=== PATIENT | male | born 1965 | race Caucasian/White ===

== ENCOUNTER 2021-01-17 14:51 | Emergency (ER) | payer BC, SELFPAY ==
[~2021-01-17 14:51] MED LIST: HYDR-3964 PO; LISI10TA27 PO; MULT-1085 PO
[2021-01-17] MEDS ORDERED: normal saline 1000ML IV soln IV ONE (15:00)
[2021-01-17 15:12] LABS: BASOPHILS % (AUTO) 0.7 % (0-1); EOSINOPHILS # (AUTO) 0.2 X10'3 (0-0.9); EOSINOPHILS % (AUTO) 3.6 % (0-6); HEMATOCRIT 45.6 % (42.0-52.0); HEMOGLOBIN 15.7 g/dl (14.0-17.9); LYMPHOCYTES % (AUTO) 43.3 % (21-51); MEAN CORPUSCULAR HEMOGLOBIN 33.7 PG (27.0-31.0); MEAN CORPUSCULAR HGB CONC 34.5 g/dL (33.0-36.5); MEAN CORPUSCULAR VOLUME 97.7 FL (78-98); MEAN PLATELET VOLUME 7.5 FL (7.4-10.4); MONOCYTES # (AUTO) 0.3 X10'3 (0-0.9); MONOCYTES % (AUTO) 5.5 % (2-12); NEUTROPHILS # (AUTO) 2.2 X10'3 (1.8-7.7); NEUTROPHILS % (AUTO) 46.9 % (42-75); PLATELET COUNT 144 X10'3 (140-440); RED BLOOD COUNT 4.67 X10'6 (4.70-6.10); RED CELL DISTRIBUTION WIDTH 13.1 % (11.5-14.5); WHITE BLOOD COUNT 4.6 X10'3 (4.5-11.0)
[2021-01-17 15:29] LABS: ALANINE AMINOTRANSFERASE 34 U/L (12-78); ALBUMIN 3.5 G/DL (3.4-5.0); ALKALINE PHOSPHATASE 95 IU/L (46-116); ANION GAP 16 (8-16); ASPARTATE AMINO TRANSFERASE 40 U/L (10-37); BILIRUBIN,TOTAL 0.3 MG/DL (0.1-1.0); BLOOD UREA NITROGEN 11 MG/DL (7-18); CALCIUM 8.2 MG/DL (8.5-10.1); CHLORIDE 107 MMOL/L (99-107); CREATININE 0.92 MG/DL (0.60-1.10); GLUCOSE 156 MG/DL (70-104); POTASSIUM 3.6 MMOL/L (3.5-5.1); SODIUM 146 MMOL/L (135-145); TOTAL CARBON DIOXIDE 23.3 MMOL/L (24-32); eGFR 86 ML/MIN
[2021-01-17 15:41] LABS: ETHANOL 0.387 GM/DL (0.0-0.010)
[2021-01-18] MEDS ORDERED: CHLO25CA10 PO (05:05)
== END 2021-01-17 16:00 | disposition left against medical advice (07) ==
LOC: ER 14:52
DX: R45.851 Suicidal ideations (principal); F10.929 Alcohol use, unspecified with intoxication, unspecified; I10 Essential (primary) hypertension; W19.XXXA Unspecified fall, initial encounter; Y93.89 Activity, other specified; Y92.89 Other specified places as the place of occurrence of the external cause; Y99.8 Other external cause status
CPT/HCPCS: 36415; 80053; 80320; 84443; 85025; 99285

== ENCOUNTER 2021-01-18 02:51 | Emergency (ER) | payer BC ==
[~2021-01-18] VITALS: Ht 190.5 cm; Wt 107.7 kg
[2021-01-18 03:05] VITALS: BP 156/102
[2021-01-18] MEDS ORDERED: CHLO25CA10 PO (05:05)
== END 2021-01-18 05:18 | disposition home or self-care (01) ==
LOC: ER 02:52
DX: F10.20 Alcohol dependence, uncomplicated (principal); I48.91 Unspecified atrial fibrillation; I10 Essential (primary) hypertension; M19.90 Unspecified osteoarthritis, unspecified site; M10.9 Gout, unspecified; Z72.89 Other problems related to lifestyle; Z72.0 Tobacco use; Z79.899 Other long term (current) drug therapy; Y90.9 Presence of alcohol in blood, level not specified
CPT/HCPCS: 99283

== ENCOUNTER 2022-06-07 06:17 | Emergency (ER) | payer BC ==
[~2022-06-07] VITALS: Ht 190.5 cm; Wt 118.2 kg
[~2022-06-07 06:17] MED LIST changes: +CHLO25CA10 PO
--- NOTE | 2022-06-07 06:50 | NUR ---
Pt placed in bed 2 and placed on monitor and with established IV of RFA. ER MD Dr. Mast updated on pt status and received VO to include ETOH level with ACS protocol order.
[2022-06-07 06:56] LABS: BASOPHILS # (AUTO) 0.1 X10'3 (0-0.2); BASOPHILS % (AUTO) 0.8 % (0-1); EOSINOPHILS # (AUTO) 0.2 X10'3 (0-0.9); EOSINOPHILS % (AUTO) 1.4 % (0-6); HEMATOCRIT 47.6 % (42.0-52.0); HEMOGLOBIN 16.3 g/dl (14.0-17.9); LYMPHOCYTES # (AUTO) 1.9 X10'3 (1.1-4.8); LYMPHOCYTES % (AUTO) 17.4 % (21-51); MEAN CORPUSCULAR HEMOGLOBIN 33.6 PG (27.0-31.0); MEAN CORPUSCULAR HGB CONC 34.3 g/dL (33.0-36.5); MEAN CORPUSCULAR VOLUME 97.7 FL (78-98); MEAN PLATELET VOLUME 8.1 FL (7.4-10.4); MONOCYTES # (AUTO) 0.7 X10'3 (0-0.9); MONOCYTES % (AUTO) 6.5 % (2-12); NEUTROPHILS # (AUTO) 8.2 X10'3 (1.8-7.7); NEUTROPHILS % (AUTO) 73.9 % (42-75); PLATELET COUNT 203 X10'3 (140-440); RED BLOOD COUNT 4.87 X10'6 (4.70-6.10); RED CELL DISTRIBUTION WIDTH 13.2 % (11.5-14.5); WHITE BLOOD COUNT 11.1 X10'3 (4.5-11.0)
[2022-06-07] MEDS ORDERED: normal saline 1000ML IV soln IVB ONE (07:05)
[2022-06-07] MEDS ORDERED: thiamine 100mg/ml 2ml inj. IV ONE (07:05)
[2022-06-07] MEDS ORDERED: LORazepam 2 mg/ml vial IV ONE (07:05)
[2022-06-07 07:06] LABS: ALANINE AMINOTRANSFERASE 25 U/L (12-78); ALBUMIN 4.1 G/DL (3.4-5.0); ALBUMIN/GLOBULIN RATIO 1.1 (1.1-1.5); ALKALINE PHOSPHATASE 98 IU/L (46-116); ANION GAP 16 (8-16); ASPARTATE AMINO TRANSFERASE 22 U/L (10-37); BILIRUBIN,TOTAL 0.8 MG/DL (0.1-1.0); BLOOD UREA NITROGEN 17 MG/DL (7-18); CHLORIDE 99 MMOL/L (99-107); GLUCOSE 200 MG/DL (70-104); POTASSIUM 4.1 MMOL/L (3.5-5.1); SODIUM 136 MMOL/L (135-145); TOTAL CARBON DIOXIDE 20.6 MMOL/L (24-32); TOTAL PROTEIN 7.7 G/DL (6.4-8.2); eGFR 78 ML/MIN
[2022-06-07 07:14] LABS: MAGNESIUM 1.4 MG/DL (1.5-2.4)
[2022-06-07] MEDS ORDERED: CHLO25CA10 PO (08:50)
[2022-06-07 09:02] VITALS: BP 139/96
[2022-06-07 10:04] LABS: RHEUM FACTOR QUAL REFLEX TITER NEGATIVE (Neg)
== END 2022-06-07 09:06 | disposition home or self-care (01) ==
LOC: ER 06:17
DX: F10.930 Alcohol use, unspecified with withdrawal, uncomplicated (principal); I10 Essential (primary) hypertension; R42 Dizziness and giddiness; M10.9 Gout, unspecified; M19.90 Unspecified osteoarthritis, unspecified site; Z72.89 Other problems related to lifestyle; Z79.899 Other long term (current) drug therapy; Y90.0 Blood alcohol level of less than 20 mg/100 ml
CPT/HCPCS: 36415; 71045; 80053; 80320; 83735; 83880; 84484; 85025; 86038; 86430; 93005; 96361; 96374; 96375; 99285; J2060; J3411; J7030

== ENCOUNTER 2022-11-05 19:04 | Emergency (ER) | payer BC ==
[~2022-11-05] VITALS: Ht 190.5 cm; Wt 86.8 kg
[2022-11-05 19:06] VITALS: BP 121/83; PULSE 65; RESP 18; TEMP 97.7; O2SAT 98
--- NOTE | 2022-11-05 21:10 | NUR ---
pt ref labs
[2022-11-05] MEDS ORDERED: CHLO25CA10 PO (21:28)
== END 2022-11-05 21:44 | disposition home or self-care (01) ==
LOC: ER 19:05
DX: F10.129 Alcohol abuse with intoxication, unspecified (principal); I10 Essential (primary) hypertension; Z79.899 Other long term (current) drug therapy; Y90.9 Presence of alcohol in blood, level not specified
CPT/HCPCS: 99283

== ENCOUNTER 2022-11-19 09:50 | Emergency (ER) | payer BC ==
[~2022-11-19] VITALS: Ht 188 cm; Wt 113.6 kg
[2022-11-19] MEDS ORDERED: ringers solution, lacted 1,000 ML IV ONE (10:15)
[2022-11-19 11:10] LABS: BASOPHILS # (AUTO) 0.1 X10'3 (0-0.2); BASOPHILS % (AUTO) 1.2 % (0-1); EOSINOPHILS # (AUTO) 0.4 X10'3 (0-0.9); EOSINOPHILS % (AUTO) 6.8 % (0-6); HEMATOCRIT 38.3 % (42.0-52.0); LYMPHOCYTES # (AUTO) 1.8 X10'3 (1.1-4.8); LYMPHOCYTES % (AUTO) 33.6 % (21-51); MEAN CORPUSCULAR HEMOGLOBIN 35.7 PG (27.0-31.0); MEAN CORPUSCULAR HGB CONC 34.1 g/dL (33.0-36.5); MEAN CORPUSCULAR VOLUME 104.6 FL (78-98); MONOCYTES # (AUTO) 0.4 X10'3 (0-0.9); MONOCYTES % (AUTO) 7.5 % (2-12); NEUTROPHILS # (AUTO) 2.7 X10'3 (1.8-7.7); NEUTROPHILS % (AUTO) 50.9 % (42-75); PLATELET COUNT 178 X10'3 (140-440); RED BLOOD COUNT 3.66 X10'6 (4.70-6.10); RED CELL DISTRIBUTION WIDTH 14.4 % (11.5-14.5); WHITE BLOOD COUNT 5.2 X10'3 (4.5-11.0)
[2022-11-19] MEDS ORDERED: MVI, adult No.4 with vit. K 10 ML in dextrose 5% water 500ml 500 ML IV SCH ×2 (11:10)
[2022-11-19] MEDS ORDERED: folic acid 1mg/0.2ml inj IV ONE (11:10)
[2022-11-19 11:18] LABS: BILIRUBIN,URINE NEGATIVE (Neg); CLARITY,URINE CLEAR (Clear); COLOR,URINE YELLOW (Yellow); GLUCOSE, URINE NEGATIVE (Neg); KETONES,URINE NEGATIVE (Neg); LEUKOCYTE ESTERASE ,URINE NEGATIVE (Neg); NITRITES, URINE NEGATIVE (Neg); OCCULT BLOOD,URINE TRACE-INTACT (Neg); PH,URINE 5.5 (4.8-8.0); PROTEIN,URINE NEGATIVE (Neg); UROBILINOGEN,URINE 0.2 E.U/dL (0.2-1.0)
[2022-11-19] MEDS ORDERED: MVI, adult No.4 with vit. K 10 ML in dextrose 5% water 500ml 500 ML IV ONE ×2 (11:19)
[2022-11-19 11:22] LABS: ALANINE AMINOTRANSFERASE 30 U/L (12-78); ALBUMIN/GLOBULIN RATIO 1.1 (1.1-1.5); ALKALINE PHOSPHATASE 64 IU/L (46-116); ANION GAP 7 (8-16); ASPARTATE AMINO TRANSFERASE 22 U/L (10-37); BILIRUBIN,TOTAL 0.2 MG/DL (0.1-1.0); BLOOD UREA NITROGEN 20 MG/DL (7-18); BUN/CREATININE RATIO 19.4 (10.0-20.0); CALCIUM 8.1 MG/DL (8.5-10.1); CHLORIDE 108 MMOL/L (99-107); CREATININE 1.03 MG/DL (0.60-1.10); GLUCOSE 142 MG/DL (70-104); POTASSIUM 4.9 MMOL/L (3.5-5.1); SODIUM 141 MMOL/L (135-145); TOTAL CARBON DIOXIDE 25.9 MMOL/L (24-32); TOTAL PROTEIN 5.8 G/DL (6.4-8.2); eCRCL 94 ML/MIN; eGFR 75 ML/MIN
[2022-11-19 11:23] LABS: UA COLLECTION TYPE CLN CATCH MIDSTREAM
[2022-11-19 11:24] LABS: BACTERIA,URINE NONE SEEN /HPF (Neg); MUCUS STRANDS NONE SEEN /LPF (Neg); RBC,URINE 0-2 /HPF (0-2); SQUAMOUS EPITHELIAL CELL,UR FEW /LPF (FEW); WBC,URINE NONE SEEN /HPF (0-4)
[2022-11-19 11:32] LABS: ETHANOL 299 MG/DL (<10); MAGNESIUM 1.8 MG/DL (1.5-2.4); SALICYLATE 0.2 MG/DL (4.0-20.0); THYROID STIMULATING HORMONE 0.78 ulU/ml (0.34-4.50)
[2022-11-19 11:35] LABS: ACETAMINOPHEN < 2.0 UG/ML (10-30)
[2022-11-19 11:35] LABS: URINE AMPHETAMINE SCREEN NEGATIVE (Neg); URINE BARBITUATE SCREEN NEGATIVE (Neg); URINE BENZODIAZEPINES SCREEN POSITIVE (Neg); URINE CANNABINOID SCREEN NEGATIVE (Neg); URINE COCAINE SCREEN NEGATIVE (Neg); URINE METHADONE SCREEN NEGATIVE (Neg); URINE OPIATE SCREEN NEGATIVE (Neg); URINE PHENCYCLIDINE SCREEN NEGATIVE (Neg)
--- NOTE | 2022-11-19 11:49 | NUR ---
Assisted patient to the bathroom as he has unsteady gait when he stood up. After patient went to the restroom, patient was escorted back to his room in bed 3. Patient repeatedly telling me he wanted to leave. I told him that he was in mental health hold due to suicide attempt by overdose himself with his medicine. Patient started biting his armband. I alerted my charge nurse right away that patient will elope
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
--- NOTE | 2022-11-19 11:57 | NUR ---
PLACED BACK ON GURNEY IN ROOM. BEHAVIORAL RESTRAINTS APPLIED WITH ASSISTANCE FROM SECURITY.
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
--- NOTE | 2022-11-19 12:23 | NUR ---
Attempted to put a new peripheral IV to the patient, patient was refusing to have a new IV inserted. I explained to him the need for a new IV so we can give the IV medications ordered for him, patient started to threatened me "I will personaly ernestina you!" I walked out of the room, told the charge nurse about this. Evelyn CASTILLO took over the care so I could go lunch. Hands off report given to Evelyn about this patient.
--- NOTE | 2022-11-19 12:32 | NUR ---
DR. VARGAS AT BEDSIDE TALKING WITH PATIENT ABOUT THE NEED FOR THE IV. PT REFUSING IV AT THIS TIME. DR CLARKE PT WILL DELAY YOUR TREATMENT. CONTINUE TO MONITOR PT. DR. VARGAS HOLD OFF ON IV FOR NOW.
--- NOTE | 2022-11-19 12:55 | NUR ---
Patient hooked back to quality assurance monitor final as some of the electrodes are off. Patient on 4 point hard restraints at this time, no signs of injury or respiratory distress. Criteria for restraints discontinuation reviewed with patient. Patient looked at me and says "I will do they same thing to you!"
[2022-11-19] MEDS ORDERED: thiamine 100mg/ml 2ml inj. IV ONE (13:00)
--- NOTE | 2022-11-19 14:24 | NUR ---
Patient still refusing peripheral IV insertion. I did explained to him the need to have IV so we can give him the medications like MVI, folic acid, and thiamine. Patient repeatedly refusing
--- NOTE | 2022-11-19 14:44 | NUR ---
Found telemonitor stickies off again when I made rounds. Addendum: 11/19/22 at 1456 by PRAMOD Patient was placed back into the heart monitoring, explained to him the need to monitor his vital signs closely.
--- NOTE | 2022-11-19 15:53 | NUR ---
Spoke to Dr. Pierre about the phone call received from Hubert at [facility]. When I spoke to Hubert at [facility], I did relayed to her the blood works results, vital signs, and behavioral issue. Per Hubert, from their standpoint they don't need to follow up further but recommendation includes low dose benzodiazepine as needed for safety of the staff and to monitor patient when given benzo. Dr. Pierre was reminded about the re-eval of behavioral restraints necessity at around 16:00 as this type of restraints after 4 hours duration.
[2022-11-19] MEDS ORDERED: ziprasidone IM 20mg inj **IM only IM ONE (15:55)
--- NOTE | 2022-11-19 16:29 | NUR ---
Dr. Pierre came to see the patient, spoke to him about the restraints, Geodon IM ordered, and treatments. Patient was agitated, threatening to ernestina all of us. Patient repeatedly was told he was on 5150 hold. Hospital security personnel came by to assist with the situation and held the patient while I administered the Geodon IM. Dr. Pierre explained to patient the criteria for discontinuation of behavioral restraints. Addendum: 11/19/22 at 1633 by PRAMOD Patient was agitated, uncooperative during interaction with him.
--- NOTE | 2022-11-19 16:36 | NUR ---
Patient offered water as he said he was thirsty. Patient refused when I told him I will give him water.
--- NOTE | 2022-11-19 22:43 | NUR ---
1845 REC'D PT IN POC IN NAD WITH RIGHT WRIST AND LEFT ANKLE BEH RESTRINTS IN PLACE, SKIN INTACT, POSITIVE CMS. PT ADMITS TO TAKING LIBRIUM FOR INTENTIONAL OD, BUT DENIES SI AT THIS TIME, PT CALM AND COOPERATIVE 2014 BEHAVIORAL RESTRAINTS REMOVED, SKIN INTACT +CMS, PT CALM AND COOPERATIVE 2019 PT REFUSES COVID TEST 2200 PT TX'D TO BED 13, WITH REPORT PROVIDED TO RICHIE RENDON
--- NOTE | 2022-11-20 00:53 | NUR ---
PT REQUESTED A FOOD TRAY. FOOD PROVIDED
--- NOTE | 2022-11-20 05:44 | NUR ---
PT'S PACKET SENT TO [facility] @[address] [facility]
[2022-11-20 06:10] VITALS: BP 150/80; PULSE 92; RESP 18; TEMP 98.6; O2SAT 97
--- NOTE | 2022-11-20 06:35 | NUR ---
RECEIVED REPORT FROM RICHIE RENDON ASSUMING CARE OF PT PT RESTING QUIETLY SUPINE POSITION RESPS EVEN UNLABORED ROOM SECURE PT IN GREEN SCRUBS [address] WAITING FOR MH EVALUATION
--- NOTE | 2022-11-20 10:42 | NUR ---
jules keane completed 5150 hold released pt aware waiting dc instructions
== END 2022-11-20 12:02 | disposition home or self-care (01) ==
LOC: ER 09:52
DX: T42.4X2A Poisoning by benzodiazepines, intentional self-harm, initial encounter (principal); F10.129 Alcohol abuse with intoxication, unspecified; R45.851 Suicidal ideations; I10 Essential (primary) hypertension; M19.90 Unspecified osteoarthritis, unspecified site; Z79.899 Other long term (current) drug therapy; Y92.89 Other specified places as the place of occurrence of the external cause; Y90.9 Presence of alcohol in blood, level not specified
CPT/HCPCS: 36415; 71045; 80053; 80305; 80320; 80329; 81001; 83735; 84443; 84484; 85025; 93005; 96360; 96372; 99291; J3486; J7120

== ENCOUNTER 2024-01-16 23:23 | Emergency (ER) | payer BC, SELFPAY ==
[~2024-01-16] VITALS: Ht 190.5 cm; Wt 113.6 kg
[2024-01-16 23:26] VITALS: TEMP 98.7
[2024-01-16 23:53] LABS: BASOPHILS # (AUTO) 0.1 X10'3 (0-0.2); BASOPHILS % (AUTO) 0.4 % (0-1); EOSINOPHILS # (AUTO) 0.1 X10'3 (0-0.9); EOSINOPHILS % (AUTO) 0.5 % (0-6); HEMATOCRIT 46.1 % (42.0-52.0); HEMOGLOBIN 15.5 g/dl (14.0-17.9); LYMPHOCYTES # (AUTO) 2.9 X10'3 (1.1-4.8); LYMPHOCYTES % (AUTO) 20.2 % (21-51); MEAN CORPUSCULAR HGB CONC 33.5 g/dL (33.0-36.5); MEAN CORPUSCULAR VOLUME 101.4 FL (78-98); MEAN PLATELET VOLUME 8.3 FL (7.4-10.4); MONOCYTES # (AUTO) 0.8 X10'3 (0-0.9); MONOCYTES % (AUTO) 5.3 % (2-12); NEUTROPHILS # (AUTO) 10.5 X10'3 (1.8-7.7); NEUTROPHILS % (AUTO) 73.6 % (42-75); PLATELET COUNT 204 X10'3 (140-440); RED BLOOD COUNT 4.55 X10'6 (4.70-6.10); RED CELL DISTRIBUTION WIDTH 14.7 % (11.5-14.5); WHITE BLOOD COUNT 14.3 X10'3 (4.5-11.0)
[2024-01-17 00:09] LABS: ALANINE AMINOTRANSFERASE 55 U/L (12-78); ALBUMIN 3.8 G/DL (3.4-5.0); ALBUMIN/GLOBULIN RATIO 1.1 (1.1-1.5); ALKALINE PHOSPHATASE 112 IU/L (46-116); ANION GAP 14 (8-16); ASPARTATE AMINO TRANSFERASE 41 U/L (10-37); BILIRUBIN,TOTAL 0.3 MG/DL (0.1-1.0); BLOOD UREA NITROGEN 20 MG/DL (7-18); BUN/CREATININE RATIO 18.3 (10.0-20.0); CALCIUM 8.6 MG/DL (8.5-10.1); CHLORIDE 104 MMOL/L (99-107); CREATININE 1.09 MG/DL (0.60-1.10); GLUCOSE 169 MG/DL (70-104); SODIUM 140 MMOL/L (135-145); TOTAL CARBON DIOXIDE 21.9 MMOL/L (24-32); TOTAL PROTEIN 7.2 G/DL (6.4-8.2); eCRCL 90 ML/MIN; eGFR 70 ML/MIN
[2024-01-17 00:18] LABS: ETHANOL 42 MG/DL (<10); PRO BRAIN NATRIURETIC PEPTIDE 1140 PG/ML (0-125)
[2024-01-17 00:25] LABS: POTASSIUM 4.3 MMOL/L (3.5-5.1)
[2024-01-17] MEDS: normal saline 1000ml 1,000 ML IV ONE (00:25)
[2024-01-17] MEDS: diltiazem 5mg/ml 5ml inj. IV ONE (00:25)
[2024-01-17] MEDS: metoprolol tartrate 50mg tablet PO ONE (00:48)
[2024-01-17 01:22] VITALS: BP 140/98; PULSE 92; RESP 18; O2SAT 98
== END 2024-01-17 01:24 | disposition home or self-care (01) ==
LOC: ER 23:23
DX: I48.91 Unspecified atrial fibrillation (principal); F10.129 Alcohol abuse with intoxication, unspecified; R00.0 Tachycardia, unspecified; I10 Essential (primary) hypertension; Z88.5 Allergy status to narcotic agent; Z88.8 Allergy status to other drugs, medicaments and biological substances; Y90.6 Blood alcohol level of 120-199 mg/100 ml
CPT/HCPCS: 36415; 71045; 80053; 80320; 83880; 84484; 85025; 93005; 96361; 96374; 99285; J3490; J7030

== ENCOUNTER 2024-03-10 01:23 | Inpatient (IN) | payer BC, SELFPAY ==
[~2024-03-10] VITALS: Ht 190.5 cm; Wt 77.5 kg
[2024-03-10 01:58] LABS: BASOPHILS # (AUTO) 0.1 X10'3 (0-0.2); BASOPHILS % (AUTO) 1.3 % (0-1); EOSINOPHILS # (AUTO) 1.3 X10'3 (0-0.9); EOSINOPHILS % (AUTO) 14.2 % (0-6); HEMATOCRIT 46.1 % (42.0-52.0); HEMOGLOBIN 15.7 g/dl (14.0-17.9); LYMPHOCYTES # (AUTO) 3.2 X10'3 (1.1-4.8); LYMPHOCYTES % (AUTO) 36.4 % (21-51); MEAN CORPUSCULAR HEMOGLOBIN 35.2 PG (27.0-31.0); MEAN CORPUSCULAR VOLUME 103.7 FL (78-98); MEAN PLATELET VOLUME 8.4 FL (7.4-10.4); MONOCYTES # (AUTO) 0.5 X10'3 (0-0.9); MONOCYTES % (AUTO) 5.8 % (2-12); NEUTROPHILS # (AUTO) 3.8 X10'3 (1.8-7.7); NEUTROPHILS % (AUTO) 42.3 % (42-75); PLATELET COUNT 188 X10'3 (140-440); RED BLOOD COUNT 4.45 X10'6 (4.70-6.10); RED CELL DISTRIBUTION WIDTH 14.8 % (11.5-14.5); WHITE BLOOD COUNT 8.9 X10'3 (4.5-11.0)
[2024-03-10 02:15] LABS: ALANINE AMINOTRANSFERASE 90 U/L (12-78); ALBUMIN 3.7 G/DL (3.4-5.0); ALKALINE PHOSPHATASE 98 IU/L (46-116); ANION GAP 18 (8-16); ASPARTATE AMINO TRANSFERASE 66 U/L (10-37); BILIRUBIN,TOTAL 0.4 MG/DL (0.1-1.0); BLOOD UREA NITROGEN 19 MG/DL (7-18); BUN/CREATININE RATIO 18.1 (10.0-20.0); CHLORIDE 104 MMOL/L (99-107); CREATININE 1.05 MG/DL (0.60-1.10); GLUCOSE 159 MG/DL (70-104); POTASSIUM 4.4 MMOL/L (3.5-5.1); SODIUM 142 MMOL/L (135-145); TOTAL CARBON DIOXIDE 19.9 MMOL/L (24-32); TOTAL PROTEIN 7.5 G/DL (6.4-8.2); eCRCL 99 ML/MIN; eGFR 73 ML/MIN
[2024-03-10 02:22] LABS: PRO BRAIN NATRIURETIC PEPTIDE 64 PG/ML (0-125)
[2024-03-10] MEDS: diltiazem 5mg/ml 5ml inj. IV ONE (02:38)
[2024-03-10] MEDS: magnesium sulf-water 2g/50mL 50 ML IV ONE (03:21)
[2024-03-10 03:50] LABS: URIC ACID 5.9 MG/DL (3.5-7.2)
[2024-03-10] MEDS ORDERED: enoxaparin 100mg/ml syringe SUBCUT ONE (04:40)
[2024-03-10] MEDS: diltiazem-NS 100mg/100ml 100 ML IV SCH (04:56)
[2024-03-10] MEDS ORDERED: potassium Cl 20 mEq SR tablet PO PRN ×2 (05:10)
[2024-03-10] MEDS ORDERED: magnesium Cl slow-release 64mg tablet PO PRN (05:10)
[2024-03-10] MEDS ORDERED: potassium Cl 40MEQ/1/2NS 520ml 520 ML IV PRN (05:10)
[2024-03-10] MEDS ORDERED: magnesium sulf-water 2g/50mL 50 ML IV PRN (05:10)
[2024-03-10] MEDS ORDERED: magnesium sulf-water 4G/100mL 100 ML IV PRN (05:10)
[2024-03-10] MEDS ORDERED: mag hydrox/Alum hydrox/simeth 30ml oral suspension PO PRN (05:10)
[2024-03-10] MEDS ORDERED: ondansetron/PF 4mg/2ml inj IV PRN (05:10)
[2024-03-10] MEDS ORDERED: acetaminophen 325mg tablet PO PRN (05:10)
[2024-03-10] MEDS ORDERED: magnesium hydroxide 30ml (MOM) UD suspension PO PRN (05:10)
[2024-03-10] MEDS: enoxaparin 30mg/0.3ml syringe SUBCUT ONE (05:10)
[2024-03-10] MEDS: enoxaparin 80mg/0.8ml syringe SUBCUT ONE (05:12)
[2024-03-10] MEDS: normal saline 1000ml 1,000 ML IV SCH (05:18)
[2024-03-10] MEDS ORDERED: haloperidol lactate 5mg/ml inj IM PRN (05:30)
[2024-03-10] MEDS ORDERED: haloperidol 5mg tablet PO PRN (05:30)
[2024-03-10] MEDS: folic acid 1mg tablet PO ONE (05:38)
[2024-03-10] MEDS: LORazepam 1 MG tablet PO PRN (07:52)
[2024-03-10] MEDS: thiamine 100mg/ml 2ml inj. IV SCH (07:53)
[2024-03-10] MEDS: cyanocobalamin 500mcg tablet PO SCH (07:53)
[2024-03-10] MEDS: docusate sod 100mg capsule PO SCH (07:53)
[2024-03-10] MEDS: K and/or MAG REPLACEMENT MC SCH (08:00)
[2024-03-10] MEDS ORDERED: heparin, porcine 5000 units/ml vial SQ SCH (08:00)
[2024-03-10 08:06] LABS: BILIRUBIN,URINE NEGATIVE (Neg); CLARITY,URINE CLEAR (Clear); COLOR,URINE YELLOW (Yellow); GLUCOSE, URINE NEGATIVE (Neg); KETONES,URINE 15 mg/dl (Neg); LEUKOCYTE ESTERASE ,URINE NEGATIVE (Neg); OCCULT BLOOD,URINE TRACE-INTACT (Neg); PH,URINE 5.5 (4.8-8.0); PROTEIN,URINE TRACE mg/dl (Neg); UROBILINOGEN,URINE 0.2 E.U/dL (0.2-1.0)
[2024-03-10 08:18] LABS: HEMOGLOBIN A1C 5.5 % (4.5-6.2)
[2024-03-10 08:20] LABS: UA COLLECTION TYPE CLN CATCH MIDSTREAM
[2024-03-10 08:23] LABS: BACTERIA,URINE NONE SEEN /HPF (Neg); MUCUS STRANDS NONE SEEN /LPF (Neg); NITRITES, URINE NEGATIVE (Neg); RBC,URINE 0-2 /HPF (0-2); SQUAMOUS EPITHELIAL CELL,UR FEW /LPF (FEW); WBC,URINE NONE SEEN /HPF (0-4)
[2024-03-10 08:24] LABS: URINE AMPHETAMINE SCREEN NEGATIVE (Neg); URINE BARBITUATE SCREEN NEGATIVE (Neg); URINE BENZODIAZEPINES SCREEN NEGATIVE (Neg); URINE CANNABINOID SCREEN NEGATIVE (Neg); URINE COCAINE SCREEN NEGATIVE (Neg); URINE METHADONE SCREEN NEGATIVE (Neg); URINE OPIATE SCREEN POSITIVE (Neg); URINE PHENCYCLIDINE SCREEN NEGATIVE (Neg)
[2024-03-10 08:30] LABS: CHOL/HDL RATIO 2.6 (0.00-4.99); CHOLESTEROL 203 MG/DL (0-200); HDL CHOLESTEROL 77 MG/DL (35-60); LDL CHOLESTEROL 96 MG/DL (50-100); MAGNESIUM 1.5 MG/DL (1.5-2.4); THYROID STIMULATING HORMONE 1.36 ulU/ml (0.34-4.50); TRIGLYCERIDES 180 MG/DL (20-135)
[2024-03-10] MEDS: apixaban 5mg tablet PO SCH (09:54)
[2024-03-10] MEDS: LORazepam 2 mg/ml vial IV PRN (10:33)
[2024-03-10] MEDS: amiodarone 150mg/dext, iso-os 100 ML IV ONE (12:54)
[2024-03-10] MEDS: metoprolol tartrate 50mg tablet PO SCH (13:03)
[2024-03-10 14:20] VITALS: RESP 16; O2SAT 99
[2024-03-10 14:50] VITALS: BP 146/88; PULSE 72; RESP 16; TEMP 98.6; O2SAT 99
[2024-03-10 18:00] VITALS: BP 158/89; PULSE 86; RESP 15; TEMP 98; O2SAT 97
[2024-03-10 20:00] VITALS: RESP 15; O2SAT 97
[2024-03-10 22:00] VITALS: BP 156/94; PULSE 69; RESP 14; TEMP 97.6; O2SAT 97
[2024-03-10] MEDS: HYDROcodone/acetaminophen 5mg/325mg tablet PO PRN (22:33)
[2024-03-11 02:00] VITALS: BP 124/80; PULSE 74; RESP 19; TEMP 97.1; O2SAT 98
[2024-03-11] MEDS ORDERED: METO-384 PO (02:06)
[2024-03-11] MEDS ORDERED: LISI40TA13 PO (02:06)
[2024-03-11] MEDS ORDERED: COLC0.6T72 PO (02:06)
[2024-03-11] MEDS ORDERED: ALLO100T PO (02:15)
[2024-03-11] MEDS ORDERED: METF-1203 PO (02:20)
[2024-03-11] MEDS ORDERED: METF-436 PO (02:25)
[2024-03-11 06:30] LABS: BASOPHILS # (AUTO) 0.1 X10'3 (0-0.2); MONOCYTES # (AUTO) 0.4 X10'3 (0-0.9)
[2024-03-11 06:33] LABS: EOSINOPHILS # (AUTO) 0.5 X10'3 (0-0.9); EOSINOPHILS % (AUTO) 9.6 % (0-6); HEMATOCRIT 43.2 % (42.0-52.0); HEMOGLOBIN 14.9 g/dl (14.0-17.9); LYMPHOCYTES # (AUTO) 1.3 X10'3 (1.1-4.8); LYMPHOCYTES % (AUTO) 23.6 % (21-51); MEAN CORPUSCULAR HEMOGLOBIN 36.2 PG (27.0-31.0); MEAN CORPUSCULAR HGB CONC 34.5 g/dL (33.0-36.5); MEAN CORPUSCULAR VOLUME 104.8 FL (78-98); MEAN PLATELET VOLUME 8.6 FL (7.4-10.4); MONOCYTES % (AUTO) 6.7 % (2-12); NEUTROPHILS # (AUTO) 3.3 X10'3 (1.8-7.7); NEUTROPHILS % (AUTO) 59.1 % (42-75); PLATELET COUNT 150 X10'3 (140-440); RED BLOOD COUNT 4.12 X10'6 (4.70-6.10); RED CELL DISTRIBUTION WIDTH 14.8 % (11.5-14.5); WHITE BLOOD COUNT 5.5 X10'3 (4.5-11.0)
[2024-03-11 06:45] LABS: ALANINE AMINOTRANSFERASE 69 U/L (12-78); ALBUMIN 3.2 G/DL (3.4-5.0); ALBUMIN/GLOBULIN RATIO 1.1 (1.1-1.5); ALKALINE PHOSPHATASE 82 IU/L (46-116); ANION GAP 10 (8-16); ASPARTATE AMINO TRANSFERASE 41 U/L (10-37); BILIRUBIN,TOTAL 0.9 MG/DL (0.1-1.0); BLOOD UREA NITROGEN 17 MG/DL (7-18); BUN/CREATININE RATIO 16.5 (10.0-20.0); CALCIUM 8.4 MG/DL (8.5-10.1); CHLORIDE 106 MMOL/L (99-107); CREATININE 1.03 MG/DL (0.60-1.10); GLUCOSE 169 MG/DL (70-104); MAGNESIUM 1.6 MG/DL (1.5-2.4); POTASSIUM 4.3 MMOL/L (3.5-5.1); SODIUM 142 MMOL/L (135-145); TOTAL CARBON DIOXIDE 26.4 MMOL/L (24-32); eCRCL 88 ML/MIN; eGFR 75 ML/MIN
[2024-03-11 07:00] VITALS: BP 146/96; PULSE 82; RESP 16; TEMP 96.7; O2SAT 98
[2024-03-11 08:00] VITALS: RESP 17; O2SAT 99
[2024-03-11 11:00] VITALS: BP 150/45; PULSE 77; RESP 18; TEMP 98; O2SAT 98
[2024-03-11] MEDS ORDERED: APIX5TAB3 PO ×2 (12:06→13:28)
[2024-03-11] MEDS ORDERED: METO50TA16 PO (12:06)
== END 2024-03-11 14:00 | disposition home or self-care (01) | DRG 309 ==
LOC: ER 01:24 → ED HOLD 05:10 → PCU 3S 14:49
PROVIDERS: ADMIT Surgery Surgical Critical Care; ATTEND Internal Medicine
DX: I48.0 Paroxysmal atrial fibrillation (principal); E87.29 Other acidosis; I10 Essential (primary) hypertension; F10.20 Alcohol dependence, uncomplicated; D53.9 Nutritional anemia, unspecified; K76.89 Other specified diseases of liver; D75.89 Other specified diseases of blood and blood-forming organs; F32.A Depression, unspecified; E11.9 Type 2 diabetes mellitus without complications; Z79.899 Other long term (current) drug therapy
CPT/HCPCS: 36415; 71045; 80053; 80061; 80305; 81001; 82693; 82948; 83036; 83735; 83880; 84132; 84443; 84484; 84550; 85025; 93005; 93306; 99291; G0378; J0282; J1650; J2060; J3411; J3490; J7030

== ENCOUNTER 2024-03-17 10:54 | Inpatient (IN) | payer BC ==
[~2024-03-17] VITALS: Ht 190.5 cm; Wt 109.9 kg
[~2024-03-17 10:54] MED LIST changes: +ALLO100T PO; +APIX5TAB3 PO; +COLC0.6T72 PO; +METF-1203 PO; +METF-436 PO; +METO-384 PO; +METO50TA16 PO
[2024-03-17 11:40] LABS: BASOPHILS # (AUTO) 0.1 X10'3 (0-0.2); BASOPHILS % (AUTO) 1.3 % (0-1); EOSINOPHILS # (AUTO) 0.2 X10'3 (0-0.9); EOSINOPHILS % (AUTO) 1.9 % (0-6); HEMATOCRIT 48.6 % (42.0-52.0); HEMOGLOBIN 16.4 g/dl (14.0-17.9); LYMPHOCYTES # (AUTO) 2.9 X10'3 (1.1-4.8); LYMPHOCYTES % (AUTO) 27.9 % (21-51); MEAN CORPUSCULAR HEMOGLOBIN 35.1 PG (27.0-31.0); MEAN CORPUSCULAR HGB CONC 33.8 g/dL (33.0-36.5); MEAN CORPUSCULAR VOLUME 103.8 FL (78-98); MEAN PLATELET VOLUME 9.2 FL (7.4-10.4); MONOCYTES # (AUTO) 0.5 X10'3 (0-0.9); NEUTROPHILS # (AUTO) 6.6 X10'3 (1.8-7.7); NEUTROPHILS % (AUTO) 63.9 % (42-75); PLATELET COUNT 212 X10'3 (140-440); RED BLOOD COUNT 4.68 X10'6 (4.70-6.10); RED CELL DISTRIBUTION WIDTH 14.4 % (11.5-14.5); WHITE BLOOD COUNT 10.4 X10'3 (4.5-11.0)
[2024-03-17 11:47] LABS: ALANINE AMINOTRANSFERASE 96 U/L (12-78); ALBUMIN 4.2 G/DL (3.4-5.0); ALBUMIN/GLOBULIN RATIO 1.2 (1.1-1.5); ALKALINE PHOSPHATASE 107 IU/L (46-116); ANION GAP 23 (8-16); ASPARTATE AMINO TRANSFERASE 61 U/L (10-37); BILIRUBIN,TOTAL 0.5 MG/DL (0.1-1.0); BLOOD UREA NITROGEN 16 MG/DL (7-18); BUN/CREATININE RATIO 14.5 (10.0-20.0); CALCIUM 9.9 MG/DL (8.5-10.1); CHLORIDE 104 MMOL/L (99-107); GLUCOSE 107 MG/DL (70-104); POTASSIUM 4.6 MMOL/L (3.5-5.1); SODIUM 145 MMOL/L (135-145); TOTAL PROTEIN 7.6 G/DL (6.4-8.2); eCRCL 90 ML/MIN; eGFR 69 ML/MIN
[2024-03-17 11:54] LABS: PRO BRAIN NATRIURETIC PEPTIDE 307 PG/ML (0-125)
[2024-03-17] MEDS ORDERED: haloperidol 5mg tablet PO PRN (13:40)
[2024-03-17 13:50] LABS: BASOPHILS # (AUTO) 0.1 X10'3 (0-0.2); BASOPHILS % (AUTO) 0.6 % (0-1); EOSINOPHILS % (AUTO) 0.3 % (0-6); HEMATOCRIT 47.1 % (42.0-52.0); HEMOGLOBIN 16.1 g/dl (14.0-17.9); LYMPHOCYTES # (AUTO) 1.5 X10'3 (1.1-4.8); LYMPHOCYTES % (AUTO) 15.6 % (21-51); MEAN CORPUSCULAR HEMOGLOBIN 35.6 PG (27.0-31.0); MEAN CORPUSCULAR HGB CONC 34.1 g/dL (33.0-36.5); MEAN CORPUSCULAR VOLUME 104.4 FL (78-98); MEAN PLATELET VOLUME 8.1 FL (7.4-10.4); MONOCYTES # (AUTO) 0.5 X10'3 (0-0.9); MONOCYTES % (AUTO) 5.2 % (2-12); NEUTROPHILS # (AUTO) 7.3 X10'3 (1.8-7.7); NEUTROPHILS % (AUTO) 78.3 % (42-75); PLATELET COUNT 208 X10'3 (140-440); RED BLOOD COUNT 4.51 X10'6 (4.70-6.10); RED CELL DISTRIBUTION WIDTH 14.7 % (11.5-14.5); WHITE BLOOD COUNT 9.3 X10'3 (4.5-11.0)
[2024-03-17] MEDS: LORazepam 2 mg/ml vial IV PRN (14:03)
[2024-03-17] MEDS: normal saline 1000ml 1,000 ML IV ONE (14:03)
[2024-03-17 14:12] LABS: INR 1.1 INR; PROTHROMBIN TIME 11.4 SECONDS (9.0-12.0)
[2024-03-17] MEDS: folic acid 1mg tablet PO SCH (14:16)
[2024-03-17] MEDS: thiamine 100mg tablet PO SCH (14:16)
[2024-03-17 14:23] LABS: ETHANOL < 10 MG/DL (<10); LIPASE 35 U/L (16-77)
[2024-03-17] MEDS ORDERED: magnesium sulf-water 2g/50mL 50 ML IV PRN (15:50)
[2024-03-17] MEDS ORDERED: acetaminophen 325mg tablet PO PRN ×2 (15:50)
[2024-03-17] MEDS ORDERED: HYDROcodone/acetaminophen 5mg/325mg tablet PO PRN (15:50)
[2024-03-17] MEDS ORDERED: potassium Cl 40MEQ/1/2NS 520ml 520 ML IV PRN (15:50)
[2024-03-17] MEDS ORDERED: magnesium Cl slow-release 64mg tablet PO PRN (15:50)
[2024-03-17] MEDS ORDERED: ondansetron/PF 4mg/2ml inj IV PRN (15:50)
[2024-03-17] MEDS ORDERED: magnesium sulf-water 4G/100mL 100 ML IV PRN (15:50)
[2024-03-17] MEDS ORDERED: morphine 2 MG/ML inj. syringe IV PRN (15:50)
[2024-03-17] MEDS ORDERED: potassium Cl 20 mEq SR tablet PO PRN ×2 (15:50)
[2024-03-17] MEDS: magnesium oxide 400mg tablet PO ONE (15:53)
[2024-03-17] MEDS: magnesium sulf-water 4G/100mL 100 ML IV ONE (15:53)
[2024-03-17] MEDS: cloNIDine 0.1 mg tablet PO PRN (16:42)
[2024-03-17] MEDS ORDERED: diltiazem-D5W 125mg/125ml 125 ML IV SCH (19:15)
[2024-03-17] MEDS: diltiazem-NS 100mg/100ml 100 ML IV SCH (20:40)
[2024-03-17] MEDS: lisinopril 10 MG tablet PO SCH (20:41)
[2024-03-17] MEDS: heparin, porcine 5000 units/ml vial SQ SCH (20:41)
[2024-03-17] MEDS: nicotine 14mg patch - 24hr TD SCH (20:42)
[2024-03-17 22:00] VITALS: BP 156/103; PULSE 107; RESP 19
[2024-03-17 22:30] VITALS: BP 149/100
[2024-03-17 23:00] VITALS: BP 152/105
[2024-03-17 23:30] VITALS: BP 131/92
[2024-03-18] VITALS (15 sets, daily range): BP systolic 121–162; BP diastolic 79–107; PULSE 78–105; RESP 16–21; TEMP 98.2–100; O2SAT 14–98
[2024-03-18] MEDS: multivitamins, therapeutics tablet PO SCH (07:27)
[2024-03-18 07:35] LABS: BASOPHILS % (AUTO) 0.8 % (0-1); EOSINOPHILS # (AUTO) 0.2 X10'3 (0-0.9); HEMOGLOBIN 14.7 g/dl (14.0-17.9); LYMPHOCYTES # (AUTO) 1.3 X10'3 (1.1-4.8); LYMPHOCYTES % (AUTO) 22.3 % (21-51); MEAN CORPUSCULAR HEMOGLOBIN 35.8 PG (27.0-31.0); MEAN CORPUSCULAR HGB CONC 34.3 g/dL (33.0-36.5); MEAN CORPUSCULAR VOLUME 104.4 FL (78-98); MONOCYTES # (AUTO) 0.5 X10'3 (0-0.9); MONOCYTES % (AUTO) 9.3 % (2-12); NEUTROPHILS # (AUTO) 3.6 X10'3 (1.8-7.7); NEUTROPHILS % (AUTO) 64.6 % (42-75); PLATELET COUNT 166 X10'3 (140-440); RED BLOOD COUNT 4.12 X10'6 (4.70-6.10); RED CELL DISTRIBUTION WIDTH 14.6 % (11.5-14.5); WHITE BLOOD COUNT 5.6 X10'3 (4.5-11.0)
[2024-03-18 07:58] LABS: ALANINE AMINOTRANSFERASE 69 U/L (12-78); ALBUMIN 3.4 G/DL (3.4-5.0); ALBUMIN/GLOBULIN RATIO 1.1 (1.1-1.5); ALKALINE PHOSPHATASE 93 IU/L (46-116); ANION GAP 15 (8-16); ASPARTATE AMINO TRANSFERASE 42 U/L (10-37); BLOOD UREA NITROGEN 13 MG/DL (7-18); BUN/CREATININE RATIO 13.5 (10.0-20.0); CALCIUM 9.1 MG/DL (8.5-10.1); CHLORIDE 103 MMOL/L (99-107); CREATININE 0.96 MG/DL (0.60-1.10); GLUCOSE 148 MG/DL (70-104); POTASSIUM 4.8 MMOL/L (3.5-5.1); SODIUM 141 MMOL/L (135-145); TOTAL CARBON DIOXIDE 23.5 MMOL/L (24-32); TOTAL PROTEIN 6.4 G/DL (6.4-8.2); eCRCL 103 ML/MIN; eGFR 81 ML/MIN
[2024-03-18 11:19] LABS: MAGNESIUM 1.5 MG/DL (1.5-2.4)
[2024-03-18] MEDS: metoprolol tartrate 50mg tablet PO ONE (11:45)
[2024-03-18] MEDS ORDERED: chlordiazePOXIDE 25mg capsule PO PRN (13:30)
[2024-03-18] MEDS ORDERED: metoprolol tartrate 50mg tablet PO SCH (20:00)
[2024-03-18] MEDS: allopurinol 100mg tablet PO SCH (20:10)
[2024-03-18] MEDS: metoprolol tartrate 50mg tablet PO SCH (20:10)
[2024-03-18] MEDS: apixaban 5mg tablet PO SCH (20:11)
[2024-03-19 02:00] VITALS: BP 139/94; PULSE 89; TEMP 98.8; O2SAT 16
[2024-03-19 06:00] VITALS: BP 153/98; PULSE 101; RESP 16; TEMP 97.6; O2SAT 98
[2024-03-19 07:13] LABS: ALANINE AMINOTRANSFERASE 66 U/L (12-78); ALBUMIN 3.5 G/DL (3.4-5.0); ALBUMIN/GLOBULIN RATIO 1.1 (1.1-1.5); ALKALINE PHOSPHATASE 87 IU/L (46-116); ANION GAP 10 (8-16); ASPARTATE AMINO TRANSFERASE 36 U/L (10-37); BILIRUBIN,TOTAL 0.8 MG/DL (0.1-1.0); BLOOD UREA NITROGEN 14 MG/DL (7-18); BUN/CREATININE RATIO 12.8 (10.0-20.0); CALCIUM 9.5 MG/DL (8.5-10.1); CHLORIDE 105 MMOL/L (99-107); CREATININE 1.09 MG/DL (0.60-1.10); GLUCOSE 150 MG/DL (70-104); POTASSIUM 3.8 MMOL/L (3.5-5.1); SODIUM 143 MMOL/L (135-145); TOTAL CARBON DIOXIDE 27.8 MMOL/L (24-32); TOTAL PROTEIN 6.6 G/DL (6.4-8.2); eCRCL 90 ML/MIN; eGFR 70 ML/MIN
[2024-03-19 07:15] LABS: BASOPHILS # (AUTO) 0.1 X10'3 (0-0.2); BASOPHILS % (AUTO) 0.8 % (0-1); EOSINOPHILS # (AUTO) 0.4 X10'3 (0-0.9); EOSINOPHILS % (AUTO) 5.8 % (0-6); HEMATOCRIT 44.6 % (42.0-52.0); HEMOGLOBIN 15.3 g/dl (14.0-17.9); LYMPHOCYTES # (AUTO) 1.4 X10'3 (1.1-4.8); LYMPHOCYTES % (AUTO) 22.5 % (21-51); MEAN CORPUSCULAR HEMOGLOBIN 35.6 PG (27.0-31.0); MEAN CORPUSCULAR HGB CONC 34.2 g/dL (33.0-36.5); MEAN PLATELET VOLUME 8.9 FL (7.4-10.4); MONOCYTES # (AUTO) 0.5 X10'3 (0-0.9); MONOCYTES % (AUTO) 7.4 % (2-12); NEUTROPHILS % (AUTO) 63.5 % (42-75); PLATELET COUNT 176 X10'3 (140-440); RED BLOOD COUNT 4.29 X10'6 (4.70-6.10); RED CELL DISTRIBUTION WIDTH 14.1 % (11.5-14.5); WHITE BLOOD COUNT 6.3 X10'3 (4.5-11.0)
[2024-03-19] MEDS: lisinopril 10 MG tablet PO SCH (07:40)
[2024-03-19] MEDS: multivitamins, therapeutics tablet PO SCH (07:41)
[2024-03-19 08:00] VITALS: RESP 16; O2SAT 98
[2024-03-19] MEDS ORDERED: FOLI1TAB27 PO (10:23)
[2024-03-19] MEDS ORDERED: thiamine tablet PO (10:23)
[2024-03-19] MEDS ORDERED: NICO-631 TD (10:23)
[2024-03-19] MEDS ORDERED: CHLO25CA10 PO (10:23)
[2024-03-19 12:05] VITALS: BP 138/78; PULSE 89; RESP 18; TEMP 97.8; O2SAT 97
== END 2024-03-19 13:08 | disposition home or self-care (01) | DRG 309 ==
LOC: ER 10:54 → PCU 3S 15:50 → EDBEDREQ 20:27
PROVIDERS: ADMIT Internal Medicine; ATTEND Internal Medicine
DX: I48.0 Paroxysmal atrial fibrillation (principal); F10.239 Alcohol dependence with withdrawal, unspecified; E83.42 Hypomagnesemia; F32.A Depression, unspecified; E11.9 Type 2 diabetes mellitus without complications; Z20.822 Contact with and (suspected) exposure to COVID-19; F10.229 Alcohol dependence with intoxication, unspecified; F17.220 Nicotine dependence, chewing tobacco, uncomplicated; I10 Essential (primary) hypertension; Z79.01 Long term (current) use of anticoagulants; Z79.84 Long term (current) use of oral hypoglycemic drugs; Z79.899 Other long term (current) drug therapy
CPT/HCPCS: 36415; 71045; 80053; 80320; 83690; 83735; 83880; 84484; 85025; 85610; 87502; 87503; 87811; 93005; 99285; A4615; G0378; J1644; J2060; J3475; J3490; J7030

== ENCOUNTER 2024-04-13 17:28 | Emergency (ER) | payer BC ==
[~2024-04-13] VITALS: Ht 188 cm; Wt 110.9 kg
[~2024-04-13 17:28] MED LIST changes: +FOLI1TAB27 PO; -METF-1203 PO; -METF-436 PO; -METO-384 PO; +NICO-631 TD; +thiamine tablet PO
[2024-04-13 18:50] LABS: BASOPHILS # (AUTO) 0.1 X10'3 (0-0.2); BASOPHILS % (AUTO) 0.7 % (0-1); EOSINOPHILS # (AUTO) 0.6 X10'3 (0-0.9); EOSINOPHILS % (AUTO) 6.5 % (0-6); HEMATOCRIT 40.4 % (42.0-52.0); HEMOGLOBIN 13.9 g/dl (14.0-17.9); LYMPHOCYTES # (AUTO) 2.7 X10'3 (1.1-4.8); LYMPHOCYTES % (AUTO) 29.2 % (21-51); MEAN CORPUSCULAR HEMOGLOBIN 35.3 PG (27.0-31.0); MEAN CORPUSCULAR HGB CONC 34.4 g/dL (33.0-36.5); MEAN CORPUSCULAR VOLUME 102.7 FL (78-98); MEAN PLATELET VOLUME 8.7 FL (7.4-10.4); MONOCYTES # (AUTO) 0.4 X10'3 (0-0.9); MONOCYTES % (AUTO) 4.5 % (2-12); NEUTROPHILS # (AUTO) 5.4 X10'3 (1.8-7.7); NEUTROPHILS % (AUTO) 59.1 % (42-75); PLATELET COUNT 201 X10'3 (140-440); RED BLOOD COUNT 3.94 X10'6 (4.70-6.10); RED CELL DISTRIBUTION WIDTH 13.8 % (11.5-14.5); WHITE BLOOD COUNT 9.1 X10'3 (4.5-11.0)
[2024-04-13 19:10] LABS: ALANINE AMINOTRANSFERASE 91 U/L (12-78); ALBUMIN 3.8 G/DL (3.4-5.0); ALBUMIN/GLOBULIN RATIO 1.1 (1.1-1.5); ALKALINE PHOSPHATASE 110 IU/L (46-116); ANION GAP 18 (8-16); ASPARTATE AMINO TRANSFERASE 78 U/L (10-37); BILIRUBIN,TOTAL 0.3 MG/DL (0.1-1.0); BLOOD UREA NITROGEN 17 MG/DL (7-18); BUN/CREATININE RATIO 17.2 (10.0-20.0); CALCIUM 8.6 MG/DL (8.5-10.1); CHLORIDE 103 MMOL/L (99-107); CREATININE 0.99 MG/DL (0.60-1.10); GLUCOSE 128 MG/DL (70-104); POTASSIUM 3.9 MMOL/L (3.5-5.1); SODIUM 140 MMOL/L (135-145); TOTAL CARBON DIOXIDE 19.3 MMOL/L (24-32); TOTAL PROTEIN 7.2 G/DL (6.4-8.2); eCRCL 97 ML/MIN; eGFR 78 ML/MIN
[2024-04-13 19:18] LABS: THYROID STIMULATING HORMONE 1.68 ulU/ml (0.34-4.50)
[2024-04-13 19:21] LABS: ETHANOL 326 MG/DL (<10)
[2024-04-13 19:39] VITALS: BP 122/76; PULSE 69; RESP 20; O2SAT 95
[2024-04-13 20:18] LABS: BILIRUBIN,URINE NEGATIVE (Neg); CLARITY,URINE CLEAR (Clear); COLOR,URINE YELLOW (Yellow); GLUCOSE, URINE NEGATIVE (Neg); KETONES,URINE NEGATIVE (Neg); LEUKOCYTE ESTERASE ,URINE NEGATIVE (Neg); NITRITES, URINE NEGATIVE (Neg); OCCULT BLOOD,URINE NEGATIVE (Neg); PH,URINE 5.5 (4.8-8.0); PROTEIN,URINE NEGATIVE (Neg); UROBILINOGEN,URINE 0.2 E.U/dL (0.2-1.0)
[2024-04-13 20:21] LABS: UA COLLECTION TYPE CLN CATCH MIDSTREAM
[2024-04-13 20:25] LABS: URINE AMPHETAMINE SCREEN NEGATIVE (Neg); URINE BARBITUATE SCREEN NEGATIVE (Neg); URINE BENZODIAZEPINES SCREEN POSITIVE (Neg); URINE CANNABINOID SCREEN POSITIVE (Neg); URINE COCAINE SCREEN NEGATIVE (Neg); URINE METHADONE SCREEN NEGATIVE (Neg); URINE OPIATE SCREEN NEGATIVE (Neg); URINE PHENCYCLIDINE SCREEN NEGATIVE (Neg)
[2024-04-13 22:31] VITALS: TEMP 97.9
== END 2024-04-13 22:32 | disposition home or self-care (01) ==
LOC: ER 17:29
DX: F10.129 Alcohol abuse with intoxication, unspecified (principal); I10 Essential (primary) hypertension; I48.91 Unspecified atrial fibrillation; M19.90 Unspecified osteoarthritis, unspecified site
CPT/HCPCS: 36415; 80053; 80305; 80320; 81003; 84443; 85025; 93005; 99284